=== PATIENT | male | born 1945 | race Caucasian/White ===

== ENCOUNTER 2019-08-02 05:53 | Day surgery (SDC) | payer OTHER ==
[2019-07-29 14:04] VITALS: BMI 26.5
[~2019-08-02 05:53] MED LIST: LACTATED RINGERS 1,000 ML IV SCH
[2019-08-02] MEDS: CYCLOPENTOLATE 1% OPHTH SOLN 2 ML BTL OP ONE ×4 (06:22→06:52)
[2019-08-02] MEDS: PHENYLEPHRINE 10% OPHTH DROPS 5 ML BTL OP ONE ×4 (06:27→06:57)
[2019-08-02 06:30] VITALS: TEMP 97.3
[2019-08-02] MEDS: KETOROLAC 0.5% OPHTH DROPS 5 ML BTL OP ONE ×3 (06:32→07:02)
[2019-08-02 06:44] LABS: Glucose,Whole Blood 164 mg/dL (75-99)
[2019-08-02] MEDS: BUPIVACAINE (PF) 0.75% 5 ML, HYALURONIDASE, HUMAN RECOMB 150 UNIT, LIDOCAINE 2% (PF) 10... MISCELLANE ONE ×6 (07:30→07:53)
[2019-08-02] MEDS: TOBRA-DEXAMET 0.3-0.1% OPHTH OINT 3.5 GM TUBE OPHTHALMIC ONE ×2 (07:31→08:21)
[2019-08-02] MEDS ORDERED: BALANCED SALT IRRIG SOLN COMB2 15 ML IRRIG.SOLN IRRIGATION ONE ×2 (07:31→08:00)
[2019-08-02] MEDS ORDERED: HYALURONATE SODIUM INTRAOCULAR 1 EACH SYRINGE (10MG/ML) INTRAOCULA ONE ×2 (07:31→08:00)
[2019-08-02] MEDS ORDERED: PROPOFOL 10 MG/ML 20 ML VIAL IV ONE (07:32)
[2019-08-02] MEDS: TIMOLOL 0.5% OPHTH DROPS 5 ML BTL OP ONE ×2 (07:32→08:21)
[2019-08-02] MEDS ORDERED: EPINEPHrine (PF) 0.5 ML in BALANCED SALT IRRIG SOLN COMB2 500 ML IRRIGATION ONE (07:38)
[2019-08-02] MEDS: EPINEPHrine (PF) 0.5 ML in BALANCED SALT IRRIG SOLN COMB2 500 ML IRRIGATION ONE ×2 (07:38→08:00)
[2019-08-02 08:42] VITALS: BP 142/82; PULSE 74; RESP 20
--- NOTE | 2019-08-02 09:01 | P.OP ---
Date of Procedure: 08/02/19 Pathology: none sent
== END 2019-08-02 09:03 | disposition home or self-care (01) ==
LOC: OR 05:53
PROVIDERS: ATTEND Ophthalmology
DX: H25.13 Age-related nuclear cataract, bilateral (principal); H57.03 Miosis; I10 Essential (primary) hypertension; E11.9 Type 2 diabetes mellitus without complications; Z87.442 Personal history of urinary calculi; Z98.890 Other specified postprocedural states
CPT/HCPCS: 66982; V2632; J3470; J2001; J2704